=== PATIENT | male | born 1980 | race Two or more races ===

== ENCOUNTER 2024-08-29 20:10 | Emergency (ER) | payer OTHER ==
[~2024-08-29] VITALS: Ht 175.3 cm; Wt 145.1 kg
[2024-08-29 20:54] VITALS: BP 132/88; TEMP 98.1; O2SAT 99
== END 2024-08-29 21:14 | disposition home or self-care (01) ==
LOC: ER 21:12
DX: S06.0X0A Concussion without loss of consciousness, initial encounter (principal); V43.52XA Car driver injured in collision with other type car in traffic accident, initial encounter; Y93.89 Activity, other specified; Y92.488 Other paved roadways as the place of occurrence of the external cause; Y99.8 Other external cause status
CPT/HCPCS: A4606; A4663